=== PATIENT | male | born 1990 | race American Indian/Alaskan Native ===

== ENCOUNTER 2018-08-24 20:47 | Emergency (ER) | payer SELFPAY ==
[2018-08-24] MEDS ORDERED: SUBLIMAZE IV ONE (21:20)
[2018-08-24] MEDS ORDERED: ZOFRAN IV ONE (21:20)
[2018-08-24] MEDS ORDERED: NACL 0.9% 1000 ML 1,000 ML IV ONE (21:20)
[2018-08-24] MEDS ORDERED: VERSED IV ONE ×3 (21:20→23:31)
--- NOTE | 2018-08-24 21:26 | Emergency Department Report ---
ED Upper Extremity Inj HPI - General Chief Complaint: Shoulder Injury Stated Complaint: LEFT SHOULDER INJURY Time Seen by Provider: 08/24/18 21:02 Source: patient Mode of arrival: Ambulatory Limitations: No Limitations - History of Present Illness Initial Comments: Patient is 28 years old male with no significant past medical history except for previous shoulder dislocation. While sago. Patient presented to the ER complaining of left shoulder pain and possible dislocation that happened just prior to coming to the emergency room. Patient stated that he lift his arm to get his shirt off and now he started having same problem. Patient denied any other injuries. MD Complaint: Injury to:: left, shoulder -: Sudden Other Extremity Injury: Shoulder: Left Other Injuries: none Handedness: right Associated Symptoms: denies other symptoms - Related Data Previous Rx's Medication Instructions Recorded Last Taken Type Cyclobenzaprine [Flexeril] 10 mg PO TID PRN #14 tablet 06/14/18 Unknown Rx HYDROcodone/APAP 5-325 [Gorin 1 - 2 each PO Q6HR PRN #14 tablet 06/14/18 Unknown Rx 5/325] Ibuprofen [Motrin 800 MG tab] 800 mg PO Q8HR PRN #20 tablet 06/14/18 Unknown Rx Allergies Allergy/AdvReac Type Severity Reaction Status Date / Time No Known Allergies Allergy Verified 06/14/18 02:02 ED Review of Systems ROS: Stated complaint: LEFT SHOULDER INJURY Other details as noted in HPI Comment: All other systems reviewed and negative Constitutional: denies: chills, fever Respiratory: denies: cough, orthopnea, shortness of breath, SOB with exertion, SOB at rest, wheezing Cardiovascular: denies: chest pain, palpitations Gastrointestinal: denies: abdominal pain, nausea Neurological: denies: headache, weakness, numbness, paresthesias, confusion ED Past Medical Hx - Past Medical History Previous Medical History?: No Hx Hypertension: No Hx Diabetes: No Additional medical history: shoulder dislocation - Surgical History Past Surgical History?: No - Social History Smoking Status: Current Every Day Smoker Substance Use Type: Marijuana - Medications Home Medications: Home Medications Medication Instructions Recorded Confirmed Last Taken Type Cyclobenzaprine [Flexeril] 10 mg PO TID PRN #14 tablet 06/14/18 Unknown Rx HYDROcodone/APAP 5-325 [Gorin 1 - 2 each PO Q6HR PRN #14 tablet 06/14/18 Unknown Rx 5/325] Ibuprofen [Motrin 800 MG tab] 800 mg PO Q8HR PRN #20 tablet 06/14/18 Unknown Rx ED Physical Exam - General Limitations: No Limitations General appearance: alert, in distress (secondary to pain) - Head Head exam: Present: atraumatic, normocephalic, normal inspection - Eye Eye exam: Present: normal appearance, PERRL - ENT ENT exam: Present: normal exam, normal orophraynx, mucous membranes moist - Neck Neck exam: Present: normal inspection, full ROM. Absent: tenderness, meningismus, lymphadenopathy, thyromegaly - Respiratory Respiratory exam: Present: normal lung sounds bilaterally. Absent: respiratory distress, wheezes, rales, rhonchi, stridor, chest wall tenderness, accessory muscle use, decreased breath sounds, prolonged expiratory - Cardiovascular Cardiovascular Exam: Present: regular rate, normal rhythm, normal heart sounds - GI/Abdominal GI/Abdominal exam: Present: soft, normal bowel sounds. Absent: distended, ten derness, guarding, rebound, rigid - Expanded Upper Extremity Exam Left Shoulder Exam: Present: tenderness, dislocation. Absent: full ROM, swelling, abrasion, laceration, ecchymosis Upper Arm exam: Present: normal inspection, full ROM Elbow exam: Present: normal inspection Forearm Wrist exam: Present: normal inspection Neurosensory exam: Present: 2-point discrimination, radial nerve intact, ulnar nerve intact, median nerve intact - Back Exam Back exam: Present: normal inspection, full ROM. Absent: CVA tenderness (R), CVA tenderness (L), muscle spasm, paraspinal tenderness, vertebral tenderness - Neurological Exam Neurological exam: Present: alert, oriented X3, CN II-XII intact, normal gait, reflexes normal - Skin Skin exam: Present: warm, intact, normal color ED Course Vital Signs 08/24/18 08/24/18 08/24/18 20:52 21:10 21:16 Temperature 98.3 F 98.2 F Temperature [ Pre-Procedure] Pulse Rate 102 H 87 Pulse Rate [Pre -Procedure] Respiratory 20 18 Rate Respiratory Rate [Pre- Procedure] Blood Pressure 154/95 136/76 Blood Pressure [Pre-Procedure] Blood Pressure 136/76 [Right] O2 Sat by Pulse 97 96 97 Oximetry 08/24/18 08/24/18 08/24/18 21:32 21:46 21:55 Temperature Temperature [ 98.3 F Pre-Procedure] Pulse Rate 80 Pulse Rate [Pre 75 -Procedure] Respiratory 18 17 Rate Respiratory 12 Rate [Pre- Procedure] Blood Pressure 140/80 Blood Pressure 144/95 [Pre-Procedure] Blood Pressure [Right] O2 Sat by Pulse 100 Oximetry 08/24/18 08/24/18 08/24/18 22:00 22:02 22:04 Temperature Temperature [ Pre-Procedure] Pulse Rate 87 Pulse Rate [Pre -Procedure] Respiratory 11 L 14 12 Rate Respiratory Rate [Pre- Procedure] Blood Pressure 136/76 Blood Pressure [Pre-Procedure] Blood Pressure [Right] O2 Sat by Pulse 99 Oximetry 08/24/18 08/24/18 08/24/18 22:16 22:30 22:34 Temperature Temperature [ Pre-Procedure] Pulse Rate 85 84 Pulse Rate [Pre -Procedure] Respiratory 11 L 12 12 Rate Respiratory Rate [Pre- Procedure] Blood Pressure 127/84 101/65 Blood Pressure [Pre-Procedure] Blood Pressure [Right] O2 Sat by Pulse 100 99 Oximetry - Moderate Sedation Indications: fracture/dislocation redu Mallampati Airway Score: 2 Preparation: equipment monitor phototypesetting applied, pulse oximeter, capnometry used, supplemental O2 applied, reversal agents at bedside, suction/airway equipment at bedside, IV secured Fentanyl: IV Midazolam: IV Ketamine: IV Complications: none Patient Tolerated Procedure: well, no complications - Orthopedic Joint Reduction Joint #1 Consent Obtained: written consent Time Out Performed: Yes Side: left Joint Reduction Location: shoulder Analgesia: moderate sedation Shoulder Technique Used (if applicable): traction/counter-traction Post-Reduction Neuro Exam: intact Post-Reduction Vascular Exam: intact Post Reduction X-Ray Obtained: Yes Post Reduction X-Ray Results: reduced Splint Applied: Yes Patient Tolerated Procedure: well, no complications ED Medical Decision Making - Radiology Data Radiology results: report reviewed Referring Physician: FENG HAZEL Patient Name: JOHNY KILPATRICK Date of : 1990 Sex: Male Report Date: 2018-08-24 Report Status: Finalized Findings [facility] [address] [place] [address] XRay Report Signed Patient: JOHNY KILPATRICK MR#: [id number] : 1990 Acct:[id number] Age/Sex: 28 / M ADM Date: 08/24/18 Loc: ED Attending Dr: Ordering Physician: FENG HAZEL Date of Service: 08/24/18 Procedure(s): XR shoulder 1V LT Accession Number(s): [id number] cc: FENG HAZEL Fluoro Time In Minutes: FINAL REPORT EXAM: XR SHOULDER 1V LT HISTORY: postreduction TECHNIQUE: Single AP portable post reduction view of left shoulder PRIORS: Left shoulder series performed earlier on the same evening FINDINGS: The glenohumeral joint appears normally aligned on this single view. There is no evidence of acute fracture. The soft tissues are unremarkable. IMPRESSION: Post reduction of a left shoulder dislocation Transcribed By: ML Dictated By: SHARIFA HAWK MD Electronically Authenticated By: SHARIFA HAWK MD Signed Date/Time: 08/24/182328 DD/ 30 TD/TT: 08/24/182330 Critical care attestation.: If time is entered above; I have spent that time in minutes in the direct care of this critically ill patient, excluding procedure time. ED Disposition Clinical Impression: Recurrent dislocation, left shoulder Disposition: DC-01 TO HOME OR SELFCARE Is pt being admited?: No Condition: Stable Instructions: Shoulder Dislocation (ED) Referrals: SEUN DOZIER MD [Staff Physician] - 3-5 Days
[2018-08-24] MEDS ORDERED: KETAMINE HCL IV ONE (22:04)
--- NOTE | 2018-08-24 22:22 | XRay Report ---
FINAL REPORT EXAM: XR SHOULDER 2+V LT HISTORY: dislocated shoulder TECHNIQUE: Two views of the left shoulder PRIORS: None. FINDINGS: There anterior inferior dislocation of the humeral head with respect to the glenoid. There is no evid ence of fracture. The acromioclavicular joint is normally aligned. Soft tissues are unremarkable. IMPRESSION: Anterior inferior dislocation of the left humeral head with respect to the glenoid. No evidence of fr acture
[2018-08-24] MEDS ORDERED: KETALAR IV ONE (22:24)
[2018-08-24] MEDS ORDERED: VERSED IV NR (23:00)
--- NOTE | 2018-08-24 23:29 | XRay Report ---
FINAL REPORT EXAM: XR SHOULDER 1V LT HISTORY: postreduction TECHNIQUE: Single AP portable post reduction view of left shoulder PRIORS: Left shoulder series performed earlier on the same evening FINDINGS: The glenohumeral joint appears normally aligned on this single view. There is no evidence of acute fr acture. The soft tissues are unremarkable. IMPRESSION: Post reduction of a left shoulder dislocation
[2018-08-25 01:40] VITALS: BP 129/82
== END 2018-08-25 01:51 | disposition home or self-care (01) ==
LOC: ED 20:47
DX: M24.412 Recurrent dislocation, left shoulder (principal); F17.200 Nicotine dependence, unspecified, uncomplicated; F12.10 Cannabis abuse, uncomplicated
CPT/HCPCS: 23650; 73020; 73030; 96374; 99285; J2250; J2405; J3010; J7030